=== PATIENT | female | born 2000 | race Caucasian/White ===

== ENCOUNTER 2024-12-25 01:34 | Emergency (ER) | payer MEDICAID, SELFPAY ==
[2024-12-25 01:35] VITALS: BMI 22.6
[2024-12-25 02:28] VITALS: BP 126/83; PULSE 71; RESP 16; TEMP 36.8; O2SAT 99
[2024-12-25 04:10] VITALS: BP 116/80; PULSE 71; RESP 18; TEMP 36.7; O2SAT 100
--- NOTE | 2024-12-25 05:47 | PD.EDRME ---
Rapid Medical Screening Exam RME Arrival date/time: 12/25/24 01:34 Chief Complaint: Abdominal Pain Time Seen by Provider: 12/25/24 05:21 Vital signs: Vital Signs Temperature 98.3 F 12/25/24 02:28 Pulse Rate 71 12/25/24 02:28 Respiratory Rate 16 12/25/24 02:28 Blood Pressure 126/83 12/25/24 02:28 Pulse Oximetry (%) 99 12/25/24 02:28 Oxygen Delivery Method Room Air 12/25/24 02:28 Vital signs reviewed by provider: Yes RME Narrative: 24-year-old female presents to the ED with a complaint of left-sided abdominal pain, approximate 2-year history of chronic constipation despite drinking plenty of fluids, recent bloody stools with mucus. She denies any fever or chills, nausea or vomiting. Unknown family history of colon cancer or familial polyposis. Labs, urine, and CT abdomen and pelvis with contrast ordered and pending. I have greeted and performed a focused initial assessment of this patient. A comprehensive ED assessment and evaluation of the patient, analysis of all test results, and completion of the medical decision making process will be conducted by additional ED providers.
--- NOTE | 2024-12-25 05:52 | XR_ITS ---
Examination: CT abdomen with intravenous contrast CT pelvis with intravenous contrast 2-D coronal reconstructions 2-D sagittal reconstructions Date and time of exam:December 25, 2024 0822 hours INDICATIONS: Left lower abdominal pain and bloody stools today. CTDI: vol (mGy) 6.97 DLP: (mGycm) 374 Technique: Multiple axial sections of the abdomen and pelvis have been obtained. 64 slice high-resolution scanner used. 3 mm axial sections have been obtained, post intravenous injection 60 cc [id number] 2-D sagittal, coronal reconstructions obtained. Low dose protocols were performed. One or more of the following dose reduction techniques were used; automated exposure control, adjustment of the mA and/or KV according to patient size, use of iterative reconstruction technique. Findings: No focal liver or splenic lesions No gallstones No pancreatic or adrenal mass. No renal or ureteral calculi, no hydronephrosis Normal appendix No bowel obstruction Mildly fluid distended small bowel loops No diverticulitis Urinary bladder intact Anteverted uterus No adnexal mass IMPRESSION: Mild small bowel ileus versus enteritis such as Crohn's disease, clinical correlation advised
[2024-12-25 06:16] VITALS: BP 129/90; PULSE 74; RESP 18; TEMP 36.7; O2SAT 100
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
--- NOTE | 2024-12-25 07:25 | PC.NURSE ---
PT RESTING QUIETLY IN ROOM. VS STABLE. PT DENIES ANY PAIN. SMALL AMOUNT OF WATER GIVEN PER PT'S REQUEST. WILL CONT TO MONITOR.
[2024-12-25 07:35] LABS: Basophils % (Auto) 1 % (0-2.5); Eosinophils # (Auto) 0.6 Thou/mm3 (0.0-0.5); Eosinophils % (Auto) 7 % (0-10); Hematocrit 38.8 % (36.0-46.0); Hemoglobin 12.8 g/dL (12.0-16.0); Immature Granulocytes % (Auto) 0 % (0-0); Immature Granulocytes Auto 0.02 Thou/mm3 (0.00-0.00); Lymphocytes % (Auto) 36 % (10-50); Mean Corpuscular Hemoglobin 28.4 pg (25.0-35.0); Mean Corpuscular Volume 86 fL (80-100); Monocytes # (Auto) 0.7 Thou/mm3 (0.0-0.8); Monocytes % (Auto) 8 % (0-12); Neutrophils % (Auto) 48 % (37-80); Nucleated Red Blood Cell % 0 /100 WBC (0); Platelet Count 244 Thou/mm3 (140-440); RDW Standard Deviation 40.6 fL (36.4-46.3); White Blood Count 8.4 Thou/mm3 (3.6-11.0)
[2024-12-25 07:41] LABS: Collection Type, Urine Clean Catch; RBC,Urine 0 /hpf (0-3); WBC,Urine 0 /hpf (0-5)
[2024-12-25 07:52] LABS: Alanine Aminotransferase 14 U/L (10-49); Albumin, Serum 4.2 gm/dL (3.5-5.0); Albumin/Globulin Ratio 1.6 (1.2-2.2); Alkaline Phosphatase 61 U/L (46-116); Amylase 53 U/L (30-118); Anion Gap 8 (7-16); Aspartate Amino Transferase 14 U/L (0-34); BUN/Creatinine Ratio 14 Ratio (12-20); Bilirubin,Total 0.4 mg/dL (0.3-1.2); Blood Urea Nitrogen 10 mg/dL (9-23); Calcium 8.4 mg/dL (8.3-10.6); Calcium (Corrected) 8.4 mg/dL (8.5-10.1); Carbon Dioxide 23.2 mMol/L (20.0-31.0); Chloride 108 mMol/L (98-107); Creatinine (Component) 0.7 mg/dL (0.6-1.3); Estimated Creatinine Clearance 105.2 mL/min (>60); Globulin 2.6 gm/dL (2.3-3.5); Glucose 91 mg/dL (74-106); Lipase 41 U/L (12-53); Osmolality,Calculated 276 (275-295); Potassium 3.6 mMol/L (3.4-5.1); Sodium 139 mMol/L (136-145); Total Protein 6.8 gm/dL (5.7-8.2); eGFR > 60 See Note
[2024-12-25 08:01] LABS: Bacteria,Urine Rare; Bilirubin,Urine Negative (Negative); Blood,Urine Negative (Negative); Clarity,Urine Clear (Clear/Hazy); Color,Urine Lt-Yellow (Lt Yel-Yel); Glucose, Urine Negative (Negative); Ketones,Urine Negative (Negative); Leukocyte Esterase,Urine Negative (Negative); Nitrite,Urine Negative (Negative); PH,Urine 6.5 (5.0-7.0); Protein,Urine Negative (Neg - Trace); Specific Gravity,Urine 1.024 (1.001-1.035); Squamous Epithelial Cell,Urine 3 /hpf (0-5); Urobilinogen,Urine Negative mg/dL (0.0-1.0)
[2024-12-25 08:13] LABS: HCG Qualitative,Urine Negative
[2024-12-25 09:10] VITALS: BP 105/56; PULSE 68; RESP 16; TEMP 36.9; O2SAT 98
--- NOTE | 2024-12-25 12:16 | PC.NURSE ---
PT DISCHARGED HOME VIA PRIVATE VEHICLE; PT AMB TO ED ENTRANCE. IV DC'D W/O DIFFICULTY; PT TOLERATED WELL. D/C INST GIVEN W/ UNDERSTANDING EXPRESSED AND QUESTIONS ANSWERED.
[2024-12-25 12:18] VITALS: BP 113/87; PULSE 70; RESP 20; TEMP 36.8; O2SAT 96
== END 2024-12-25 12:20 | disposition home or self-care (01) ==
PROVIDERS: Physician Assistant; Emergency Provider Emergency Medicine; PCP Family Medicine
DX: K50.911 Crohn's disease, unspecified, with rectal bleeding (principal)
CPT/HCPCS: 36415; 74177; 80053; 81001; 81025; 82150; 83690; 85025; 87086; 99285; A4649; Q9967